=== PATIENT | female | born 1975 | race Caucasian/White ===

== ENCOUNTER 2020-09-30 21:02 | Emergency (ER) | payer BC ==
[2020-09-30 21:35] LABS: BASO # 0.03 (0.02-0.10); EOS # 0.15 (0.04-0.40); EOS % 1.7 % (1.0-5.0); HEMATOCRIT 39.9 % (37.0-47.0); HEMOGLOBIN 13.5 g/dL (12.5-16.0); LYMPH# 2.74 (1.50-4.00); MEAN CELL VOLUME 93 fl (78-100); MEAN CORPUSCULAR HEMOGLOBIN 32 pg (27-31); MEAN CORPUSCULAR HGB CONC 34 g/dL (33-37); MEAN PLATELET VOLUME 10.7 fl (7.4-10.4); MONO # 0.53 (0.20-0.80); NEU # 5.26 (1.40-6.50); PLATELET COUNT 276 K/mm3 (130-400); RED BLOOD COUNT 4.28 M/mm3 (4.10-5.30); RED CELL DISTRIBUTION WIDTH 12.9 % (11.5-14.5); WHITE BLOOD COUNT 8.7 K/mm3 (4.8-10.8)
[2020-09-30 21:49] LABS: ALBUMIN 4.5 g/dL (3.5-5.0); POTASSIUM 3.8 mmol/L (3.5-5.1)
[2020-09-30 21:51] LABS: CALCIUM 9.6 mg/dL (8.3-10.5)
[2020-09-30 21:52] LABS: PARTIAL THROMBOPLASTIN TIME 26.3 SECONDS (21.0-32.0); PROTHROMBIN TIME 9.3 SECONDS (9.0-12.0); TOTAL PROTEIN 7.8 g/dL (6.4-8.3)
[2020-09-30 21:54] LABS: TOTAL BILIRUBIN 0.7 mg/dL (0.2-1.2)
[2020-09-30] MEDS ORDERED: WELLBUTRIN XL150 M2 PO (22:25)
[2020-09-30] MEDS ORDERED: DESYREL50 MG PO (22:26)
[2020-09-30] MEDS ORDERED: SINGULAIR 110 MG/TAB PO (22:26)
[2020-09-30] MEDS ORDERED: ALLEGRA ALLERG180 MG PO (22:27)
[2020-09-30 23:39] VITALS: BP 145/94
== END 2020-09-30 23:10 | disposition home or self-care (01) ==
LOC: ED 21:02
PROVIDERS: Nurse Practitioner
DX: I10 Essential (primary) hypertension (principal); F41.9 Anxiety disorder, unspecified; Z79.899 Other long term (current) drug therapy

== ENCOUNTER 2024-07-08 19:29 | Emergency (ER) | payer BC ==
[~2024-07-08] VITALS: Ht 188 cm; Wt 113.4 kg
[~2024-07-08 19:29] MED LIST: ALLEGRA ALLERG180 MG PO; DESYREL50 MG PO; SINGULAIR 110 MG/TAB PO; WELLBUTRIN XL150 M2 PO
[2024-07-08] MEDS ORDERED: NS 1,000 ML IV SCH (20:00)
[2024-07-08 20:07] LABS: BASO # 0.01 K/mm3 (0.02-0.10); EOS # 0.12 K/mm3 (0.04-0.40); EOS % 1.3 % (0.0-4.0); HEMATOCRIT 42.7 % (42.0-52.0); HEMOGLOBIN 14.6 g/dL (13.5-18.0); LYMPH# 2.26 K/mm3 (1.50-4.00); MEAN CELL VOLUME 87 fl (78-100); MEAN CORPUSCULAR HEMOGLOBIN 30 pg (27-31); MEAN CORPUSCULAR HGB CONC 34 g/dL (33-37); MEAN PLATELET VOLUME 10.6 fl (7.4-10.4); NEU # 6.06 K/mm3 (1.40-6.50); PLATELET COUNT 214 K/mm3 (130-400); RED BLOOD COUNT 4.92 M/mm3 (4.20-5.60); RED CELL DISTRIBUTION WIDTH 11.6 % (11.5-14.5); WHITE BLOOD COUNT 9.2 K/mm3 (4.8-10.8)
[2024-07-08 20:10] LABS: ALBUMIN 4.2 g/dL (3.5-5.0)
[2024-07-08 20:12] LABS: CALCIUM 8.7 mg/dL (8.3-10.5)
[2024-07-08 20:15] LABS: TOTAL BILIRUBIN 0.5 mg/dL (0.2-1.2)
[2024-07-08 20:53] LABS: URINE APPEARANCE CLEAR (CLEAR); URINE COLOR YELLOW (YELLOW)
[2024-07-08 20:54] LABS: PH-URINE 6.5 (5.0 - 8.0); URINE BILIRUBIN NEGATIVE (NEGATIVE); URINE BLOOD 1+ (NEGATIVE); URINE GLUCOSE NEGATIVE (NEGATIVE); URINE KETONE NEGATIVE (NEGATIVE); URINE LEUKOCYTE ESTERASE NEGATIVE (NEGATIVE); URINE NITRATE NEGATIVE (NEGATIVE); URINE PROTEIN(semi-quant) NEGATIVE (NEGATIVE); URINE WBC 0-1 /hpf (0-3)
[2024-07-08] MEDS ORDERED: NS 100 ML IV SCH (21:45)
[2024-07-08] MEDS ORDERED: Iohexol 300 - 100 ML VIAL IV ONE (21:45)
[2024-07-08] MEDS ORDERED: NORCO 325 MG-51 TA1 PO (22:17)
[2024-07-08] MEDS ORDERED: Home HYDROcodone/Acetaminophen 5/325 MG #4 TABS/PACK PO ONE (22:30)
[2024-07-08 22:34] VITALS: BP 125/70
== END 2024-07-08 22:34 | disposition home or self-care (01) ==
LOC: ED 19:29
PROVIDERS: Family Medicine
DX: K57.32 Diverticulitis of large intestine without perforation or abscess without bleeding (principal)
CPT/HCPCS: J7030; Q9967